=== PATIENT | female | born 1960 | race Two or more races ===

== ENCOUNTER 2016-12-31 10:10 | Emergency (ER) | payer MEDICAID ==
[~2016-12-31] VITALS: Ht 160 cm; Wt 61.2 kg
[~2016-12-31 10:10] MED LIST: ALBUPOW26 XX; FLUT250M2 IN
[2016-12-31 10:50] VITALS: BP 144/93
[2016-12-31] MEDS ORDERED: KETOROLAC TROMETH 60MG/2ML VIAL IM ONE (11:00)
== END 2016-12-31 11:35 | disposition home or self-care (01) ==
LOC: ER 10:10
DX: G43.009 Migraine without aura, not intractable, without status migrainosus (principal)
CPT/HCPCS: 70450; 96372; 99284; J1885

== ENCOUNTER 2017-01-13 04:34 | Inpatient (IN) | payer MEDICAID ==
[~2017-01-13] VITALS: Ht 154.9 cm; Wt 67.2 kg
[2017-01-13] MEDS ORDERED: IPRATROPIUM BROM 0.5 MG/2.5ML INH SOL NEB ONE ×2 (04:45→10:00)
[2017-01-13] MEDS ORDERED: ALBUTEROL SULF 2.5 MG/0.5ML(0.5%) NEB SOLN NEB ONE ×2 (04:45→10:00)
[2017-01-13] MEDS ORDERED: methylPREDNISolone SOD SUCC 125 MG/2 ML VL IV ONE ×2 (04:45→10:30)
[2017-01-13] MEDS ORDERED: EPINEPHrine HCL 1 MG/1 ML AMP ONE (04:56)
[2017-01-13 04:57] LABS: Basophils # (auto) 0.1 uL; Basophils % (auto) 1.1 % (0.0-2.0); Eosinophils # (auto) 1.1 uL; Eosinophils % (auto) 10.1 % (0.0-7.0); Hematocrit 41.5 % (36.0-46.0); Hemoglobin 13.8 g/dL (12.2-16.2); Lymphocytes # (auto) 3.8 uL; Mean Corpuscular Hemoglobin 30.1 pg (28.0-32.0); Mean Corpuscular Hgb Conc. 33.2 g/dL (32.0-36.0); Mean Corpuscular Volume 90.7 fL (80.0-100.0); Mean Platelet Volume 7.1 fL (6.9-10.8); Monocytes # (auto) 0.7 uL; Monocytes % (auto) 6.5 % (0.0-12.0); Neutrophils # (auto) 5.4 uL; Neutrophils % (auto) 48.3 % (37.0-80.0); Nucleated Red Blood Cells % 0.1 %; Platelet Count (auto) 306 10^3/uL (140-450); Red Cell Distribution Width 13.5 % (11.8-14.3); White Blood Cell 11.2 10^3/uL (4.4-10.8)
[2017-01-13] MEDS ORDERED: diphenhdrAMINE HCL 50 MG/1 ML VL IV ONE (05:00)
[2017-01-13] MEDS ORDERED: EPINEPHrine HCL 1 MG/1 ML AMP SC ONE (05:00)
[2017-01-13] MEDS ORDERED: ALBUTEROL SULF 2.5 MG/0.5ML(0.5%) NEB SOLN ONE ×2 (05:05→11:23)
[2017-01-13 05:19] LABS: Calcium 8.8 mg/dL (8.5-10.1); Potassium 4.1 mmol/L (3.5-5.1)
[2017-01-13 05:21] LABS: BUN/Creatinine Ratio 18.5
[2017-01-13 05:21] LABS: Base Excess 0.3 mmol/L (-2.0-2.0); Blood COHb 0.3 % (0.5-1.5); Blood MetHb 0.5 % (0.0-1.5); HCO3 22.4 mmol/L (22-26.0); MODE NASAL CANNULA; O2Hb 97.2 % (94.0-97.0); PCO2 29.6 mmHg (35.0-45.0); PCO2(T) 29.6 mmHg (35.0-45.0); PO2 122.9 mmHg (80.0-100.0); PO2(T) 122.9 mmHg (80.0-100.0); Sample Type Arterial; pH 7.497 (7.350-7.450)
[2017-01-13 05:23] LABS: Bilirubin, Total 0.2 mg/dL (0.2-1.0); Total Protein 7.7 g/dL (6.4-8.2)
[2017-01-13 05:48] LABS: B-Type Natriuretic Peptide < 5.0 pg/mL (0-100); Temperature: 21.9 C (20.0-25.0)
[2017-01-13] MEDS: MAGNESIUM SULFATE 1GM/100ML 100 ML IV SCH ×3 (06:02→07:27)
[2017-01-13] MEDS ORDERED: methylPREDNISolone SOD SUCC 125 MG/2 ML VL ONE (10:26)
[2017-01-13] MEDS ORDERED: SODIUM CHLORIDE 0.9% 1,000 ML IVB ONE (10:42)
[2017-01-13] MEDS ORDERED: cefTRIAXone 1GM/50ML D5W 50 ML IV ONE (10:45)
[2017-01-13] MEDS ORDERED: LORazepam 2MG/ML-1ML VIAL ONE (10:48)
[2017-01-13] MEDS ORDERED: LORazepam 2MG/ML-1ML VIAL IV ONE (11:00)
[2017-01-13] MEDS ORDERED: ACETAMINOPHEN 500 MG TAB PO PRN (12:15)
[2017-01-13] MEDS ORDERED: NITROGLYCERIN 0.4 MG SL TAB SL PRN (12:15)
[2017-01-13] MEDS ORDERED: TEMAZEPAM 15 MG CAP PO PRN (12:15)
[2017-01-13] MEDS ORDERED: PROMETHAZINE HCL 25 MG/ML 1ML IV PRN (12:15)
[2017-01-13] MEDS ORDERED: LORazepam 0.5 MG TAB PO PRN (12:15)
[2017-01-13] MEDS ORDERED: MORPHINE SULF INJ 2 MG/ML SYRINGE 1ML IV PRN ×2 (12:15)
[2017-01-13] MEDS: DOXYCYCLINE HYC 100MG/250ML 250 ML IV SCH (13:00)
[2017-01-13] MEDS: SODIUM CHLORIDE 0.9% 1,000 ML IV SCH ×2 (13:10→18:18)
[2017-01-13] MEDS: ALBUTEROL SULF 2.5 MG/0.5ML(0.5%) NEB SOLN NEB PRN (16:01)
[2017-01-13] MEDS: IPRATROPIUM BROM 0.5 MG/2.5ML INH SOL NEB SCH ×2 (18:09→23:50)
[2017-01-13] MEDS: BUDESONIDE (INHALATION) 0.5 MG/2 ML NEB NEB SCH (18:09)
[2017-01-13] MEDS: methylPREDNISolone SOD SUCC 40 MG/ML VL IV SCH (18:09)
[2017-01-13] MEDS: ALBUTEROL SULF 2.5 MG/0.5ML(0.5%) NEB SOLN NEB SCH ×2 (18:09→23:50)
[2017-01-13 18:12] VITALS: BP 122/78
[2017-01-14] MEDS: methylPREDNISolone SOD SUCC 40 MG/ML VL IV SCH ×4 (00:02→18:50)
[2017-01-14] MEDS: DOXYCYCLINE HYC 100MG/250ML 250 ML IV SCH (00:02)
[2017-01-14] MEDS: ALBUTEROL SULF 2.5 MG/0.5ML(0.5%) NEB SOLN NEB PRN (03:17)
[2017-01-14] MEDS: BUDESONIDE (INHALATION) 0.5 MG/2 ML NEB NEB SCH ×2 (05:38→18:40)
[2017-01-14] MEDS: ALBUTEROL SULF 2.5 MG/0.5ML(0.5%) NEB SOLN NEB SCH ×5 (05:38→22:28)
[2017-01-14] MEDS: IPRATROPIUM BROM 0.5 MG/2.5ML INH SOL NEB SCH ×5 (05:38→22:28)
[2017-01-14] MEDS ORDERED: PATIENTS OWN MEDICATION (Fluticasone-Salmeterol (Advair Diskus 250/50) 2 PUFF) IN SCH (10:00)
[2017-01-14] MEDS: HYDROcodone-ACET 5/325MG TAB PO PRN (10:08)
[2017-01-14] MEDS ORDERED: AZITHROMYCIN 250 MG TAB PO ONE (11:45)
[2017-01-14] MEDS ORDERED: cefTRIAXone 1GM/50ML D5W 50 ML IV ONE (11:45)
[2017-01-14] MEDS: SODIUM CHLORIDE 0.9% 1,000 ML IV SCH (15:15)
[2017-01-14] MEDS: DOCUSATE SOD 100 MG CAP PO SCH (21:37)
[2017-01-14 22:00] VITALS: BP 123/67
[2017-01-14 23:00] VITALS: BP 123/67
[2017-01-15] MEDS: methylPREDNISolone SOD SUCC 40 MG/ML VL IV SCH ×4 (00:20→21:59)
[2017-01-15 01:00] VITALS: BP 123/67
[2017-01-15] MEDS: ALBUTEROL SULF 2.5 MG/0.5ML(0.5%) NEB SOLN NEB SCH ×5 (02:22→22:17)
[2017-01-15] MEDS: IPRATROPIUM BROM 0.5 MG/2.5ML INH SOL NEB SCH ×5 (02:22→22:17)
[2017-01-15] MEDS: SODIUM CHLORIDE 0.9% 1,000 ML IV SCH ×2 (04:06→17:00)
[2017-01-15 05:00] VITALS: BP 124/75
[2017-01-15 06:25] LABS: Basophils # (auto) 0.1 uL; Basophils % (auto) 0.7 % (0.0-2.0); Eosinophils # (auto) 0 uL; Hematocrit 37.3 % (36.0-46.0); Hemoglobin 12.2 g/dL (12.2-16.2); Lymphocytes % (auto) 5.4 % (10.0-50.0); Mean Corpuscular Hemoglobin 29.8 pg (28.0-32.0); Mean Corpuscular Hgb Conc. 32.7 g/dL (32.0-36.0); Mean Corpuscular Volume 91.3 fL (80.0-100.0); Mean Platelet Volume 7.9 fL (6.9-10.8); Monocytes # (auto) 0.4 uL; Monocytes % (auto) 1.9 % (0.0-12.0); Neutrophils # (auto) 17.9 uL; Platelet Count (auto) 279 10^3/uL (140-450); White Blood Cell 19.4 10^3/uL (4.4-10.8)
[2017-01-15 06:50] LABS: Albumin 3.3 g/dL (3.4-5.0); BUN/Creatinine Ratio 24.1; Calcium 8.6 mg/dL (8.5-10.1)
[2017-01-15 06:53] LABS: Bilirubin, Total 0.1 mg/dL (0.2-1.0); Total Protein 6.4 g/dL (6.4-8.2)
[2017-01-15 07:53] VITALS: BP 143/83
[2017-01-15] MEDS: cefTRIAXone 1GM/50ML D5W 50 ML IV SCH (09:11)
[2017-01-15] MEDS: BUDESONIDE (INHALATION) 0.5 MG/2 ML NEB NEB SCH ×2 (09:23→22:17)
[2017-01-15] MEDS: ALBUTEROL SULF 2.5 MG/0.5ML(0.5%) NEB SOLN NEB PRN (09:23)
[2017-01-15] MEDS: DOCUSATE SOD 100 MG CAP PO SCH ×2 (11:48→21:59)
[2017-01-15] MEDS: AZITHROMYCIN 250 MG TAB PO SCH (11:48)
[2017-01-15 11:52] VITALS: BP 144/76
[2017-01-15 16:32] VITALS: BP 138/73
[2017-01-15 21:33] VITALS: BP 125/77
[2017-01-16] MEDS: IPRATROPIUM BROM 0.5 MG/2.5ML INH SOL NEB SCH ×7 (02:00→22:43)
[2017-01-16] MEDS: ALBUTEROL SULF 2.5 MG/0.5ML(0.5%) NEB SOLN NEB SCH ×7 (02:00→22:43)
[2017-01-16 05:00] VITALS: BP 134/76
[2017-01-16 05:37] LABS: Hemoglobin 11.9 g/dL (12.2-16.2); Mean Corpuscular Hemoglobin 30.1 pg (28.0-32.0); Mean Corpuscular Hgb Conc. 33.1 g/dL (32.0-36.0); Mean Corpuscular Volume 90.9 fL (80.0-100.0); Mean Platelet Volume 7.8 fL (6.9-10.8); Platelet Count (auto) 262 10^3/uL (140-450); Red Cell Distribution Width 13.7 % (11.8-14.3); White Blood Cell 14.4 10^3/uL (4.4-10.8)
[2017-01-16 05:51] LABS: BUN/Creatinine Ratio 23.2; Calcium 8.2 mg/dL (8.5-10.1); Potassium 4.6 mmol/L (3.5-5.1)
[2017-01-16 05:53] LABS: Bilirubin, Total 0.1 mg/dL (0.2-1.0)
[2017-01-16 06:12] LABS: Metamyelocytes % 0; Myelocytes % 0; Promyelocytes % 0; Reactive Lymphocytes 0
[2017-01-16] MEDS: SODIUM CHLORIDE 0.9% 1,000 ML IV SCH ×2 (06:26→20:04)
[2017-01-16] MEDS: methylPREDNISolone SOD SUCC 40 MG/ML VL IV SCH ×3 (06:26→22:37)
[2017-01-16 09:00] VITALS: BP 144/83
[2017-01-16] MEDS: cefTRIAXone 1GM/50ML D5W 50 ML IV SCH (09:00)
[2017-01-16 09:40] LABS: Platelet Estimate Adequate
[2017-01-16] MEDS: DOCUSATE SOD 100 MG CAP PO SCH ×2 (10:07→22:38)
[2017-01-16] MEDS: AZITHROMYCIN 250 MG TAB PO SCH (10:07)
[2017-01-16] MEDS: BUDESONIDE (INHALATION) 0.5 MG/2 ML NEB NEB SCH ×2 (10:17→22:43)
[2017-01-16] MEDS ORDERED: MILK OF MAGNESIA 30ML SUSP PO ONE (13:15)
[2017-01-16 15:11] VITALS: BP 141/76
[2017-01-16 21:14] VITALS: BP 144/90
[2017-01-17] MEDS: ALBUTEROL SULF 2.5 MG/0.5ML(0.5%) NEB SOLN NEB SCH ×6 (02:46→22:51)
[2017-01-17] MEDS: IPRATROPIUM BROM 0.5 MG/2.5ML INH SOL NEB SCH ×6 (02:46→22:51)
[2017-01-17 04:36] VITALS: BP 135/76
[2017-01-17 04:45] VITALS: BP 144/90
[2017-01-17 05:39] LABS: Hematocrit 36.5 % (36.0-46.0); Hemoglobin 11.8 g/dL (12.2-16.2); Mean Corpuscular Hemoglobin 29.3 pg (28.0-32.0); Mean Corpuscular Hgb Conc. 32.4 g/dL (32.0-36.0); Mean Corpuscular Volume 90.6 fL (80.0-100.0); Mean Platelet Volume 7.9 fL (6.9-10.8); Platelet Count (auto) 262 10^3/uL (140-450); Red Cell Distribution Width 13.4 % (11.8-14.3); White Blood Cell 12.4 10^3/uL (4.4-10.8)
[2017-01-17 05:47] LABS: Metamyelocytes % 0; Myelocytes % 0; Promyelocytes % 0; Reactive Lymphocytes 0
[2017-01-17] MEDS: BUDESONIDE (INHALATION) 0.5 MG/2 ML NEB NEB SCH ×2 (05:51→19:27)
[2017-01-17 06:08] LABS: BUN/Creatinine Ratio 25.4; Calcium 8.3 mg/dL (8.5-10.1); Potassium 4.1 mmol/L (3.5-5.1)
[2017-01-17] MEDS: methylPREDNISolone SOD SUCC 40 MG/ML VL IV SCH ×3 (06:38→21:45)
[2017-01-17 09:00] VITALS: BP 138/79
[2017-01-17] MEDS: SODIUM CHLORIDE 0.9% 1,000 ML IV SCH ×2 (09:26→21:46)
[2017-01-17 09:36] LABS: Platelet Estimate Adequate
[2017-01-17] MEDS: DOCUSATE SOD 100 MG CAP PO SCH ×2 (10:00→21:45)
[2017-01-17] MEDS: cefTRIAXone 1GM/50ML D5W 50 ML IV SCH (10:01)
[2017-01-17] MEDS: AZITHROMYCIN 250 MG TAB PO SCH (10:02)
[2017-01-17 12:00] VITALS: BP 128/72
[2017-01-17] MEDS ORDERED: ALBUTEROL SULF 2.5 MG/0.5ML(0.5%) NEB SOLN NEB PRN (13:15)
[2017-01-17] MEDS: HYDROcodone-ACET 5/325MG TAB PO PRN (14:12)
[2017-01-17] MEDS ORDERED: GASTROGRAFIN 120 ML SOL ONE (16:32)
[2017-01-17 17:17] VITALS: BP 122/74
[2017-01-17 22:00] VITALS: BP 120/85
[2017-01-17] MEDS ORDERED: MONTELUKAST SODIUM 10 MG TAB PO SCH (22:00)
[2017-01-18] MEDS: ALBUTEROL SULF 2.5 MG/0.5ML(0.5%) NEB SOLN NEB SCH ×3 (02:00→10:20)
[2017-01-18] MEDS: IPRATROPIUM BROM 0.5 MG/2.5ML INH SOL NEB SCH ×3 (02:01→10:20)
[2017-01-18 05:00] VITALS: BP 127/90
[2017-01-18] MEDS: methylPREDNISolone SOD SUCC 40 MG/ML VL IV SCH (06:27)
[2017-01-18] MEDS: BUDESONIDE (INHALATION) 0.5 MG/2 ML NEB NEB SCH (06:29)
[2017-01-18] MEDS: DOCUSATE SOD 100 MG CAP PO SCH (09:00)
[2017-01-18] MEDS: AZITHROMYCIN 250 MG TAB PO SCH (09:00)
[2017-01-18] MEDS: cefTRIAXone 1GM/50ML D5W 50 ML IV SCH (09:00)
== END 2017-01-18 13:20 | disposition home or self-care (01) | DRG 141 ==
LOC: ER 04:36 → TELE 04:37 → TELE-WESTW 01-14 23:21
PROVIDERS: ADMIT Internal Medicine; ATTEND Internal Medicine
DX: J45.901 Unspecified asthma with (acute) exacerbation (principal); E44.0 Moderate protein-calorie malnutrition; R00.0 Tachycardia, unspecified; Z82.5 Family history of asthma and other chronic lower respiratory diseases; Z88.0 Allergy status to penicillin; Z88.2 Allergy status to sulfonamides; Z88.8 Allergy status to other drugs, medicaments and biological substances; Z90.710 Acquired absence of both cervix and uterus; Z68.28 Body mass index [BMI] 28.0-28.9, adult
CPT/HCPCS: 36415; 36600; 71010; 74250; 80048; 80053; 82805; 83735; 83880; 85007; 85025; 85027; 93005; 94640; 94644; 94645; 96365; 96372; 96375; J0171; J0696; J3490

== ENCOUNTER 2017-06-05 11:15 | Observation (INO) | payer MEDICAID ==
[~2017-06-05] VITALS: Ht 154.9 cm; Wt 63.5 kg
[2017-06-05 12:04] LABS: Basophils # (auto) 0.1 uL; Basophils % (auto) 0.8 % (0.0-2.0); Eosinophils # (auto) 0.1 uL; Eosinophils % (auto) 0.9 % (0.0-7.0); Hematocrit 43.2 % (36.0-46.0); Lymphocytes # (auto) 2.1 uL; Lymphocytes % (auto) 22.4 % (10.0-50.0); Mean Corpuscular Hgb Conc. 32.5 g/dL (32.0-36.0); Mean Corpuscular Volume 89.4 fL (80.0-100.0); Monocytes # (auto) 0.4 uL; Monocytes % (auto) 4.6 % (0.0-12.0); Neutrophils # (auto) 6.7 uL; Neutrophils % (auto) 71.3 % (37.0-80.0); Platelet Count (auto) 347 10^3/uL (140-450); Red Blood Cells 4.84 10^6/uL (4.0-5.20); Red Cell Distribution Width 13.5 % (11.8-14.3); White Blood Cell 9.5 10^3/uL (4.4-10.8)
[2017-06-05 12:26] LABS: Alanine Aminotransferase 27 U/L (13-56); Alkaline Phosphatase 86 U/L (45-117); Anion Gap 7 (5-15); Aspartate Aminotransferase 12 U/L (15-37); BUN/Creatinine Ratio 26.1; Blood Urea Nitrogen 18 mg/dL (7-18); Carbon Dioxide 27 mmol/L (21-32); Chloride 108 mmol/L (98-107); GFR African American 113 mL/min; GFR Non-African American 94 mL/min; Glucose 101 mg/dL (74-106); Potassium 3.9 mmol/L (3.5-5.1); Sodium 142 mmol/L (136-145)
[2017-06-05 12:27] LABS: Albumin 3.9 g/dL (3.4-5.0); Amylase 72 U/L (25-115); Bilirubin, Total 0.3 mg/dL (0.2-1.0); Calcium 8.7 mg/dL (8.5-10.1); Lipase 97 U/L (73-393); Total Protein 7.9 g/dL (6.4-8.2)
[2017-06-05 13:02] LABS: Urine Bacteria NONE SEEN /hpf (None Seen); Urine Blood Negative /uL (Negative); Urine Specific Gravity 1.024 (1.001-1.035); Urine WBC 6 /hpf (0 - 5)
[2017-06-05] MEDS ORDERED: SODIUM CHLORIDE 0.9% 1,000 ML IVB ONE (13:32)
[2017-06-05 14:01] LABS: INR 0.87 (0.9-1.15); Partial Thromboplastin Time 27.1 sec (22.64-33.71); Prothrombin Time 9.5 sec (9.37-12.3)
[2017-06-05 14:20] VITALS: BP 136/76
[2017-06-05] MEDS ORDERED: KETOROLAC TROMETH 30 MG/ML 1ML VIAL IV ONE (15:00)
== END 2017-06-05 17:42 | disposition home or self-care (01) | DRG 203 ==
LOC: ER 11:15 → OVERFLOW 13:33 → ER 17:42
PROVIDERS: ADMIT Family Medicine; ATTEND Family Medicine
DX: R07.89 Other chest pain (principal); J45.909 Unspecified asthma, uncomplicated; R10.13 Epigastric pain; K29.70 Gastritis, unspecified, without bleeding; Z88.0 Allergy status to penicillin; Z90.710 Acquired absence of both cervix and uterus; Z82.49 Family history of ischemic heart disease and other diseases of the circulatory system; Z79.899 Other long term (current) drug therapy
CPT/HCPCS: 36415; 71046; 74176; 80053; 81001; 81025; 82150; 83690; 84484; 85025; 85379; 85610; 85730; 93005; 96361; 96374; 99285; G0378; J1885; J7030

== ENCOUNTER 2017-07-23 11:08 | Emergency (ER) | payer MEDICAID ==
[~2017-07-23] VITALS: Ht 154.9 cm; Wt 67.1 kg
[2017-07-23 11:24] VITALS: BP 142/94
[2017-07-23] MEDS ORDERED: IPRATROPIUM BROM 0.5 MG/2.5ML INH SOL NEB ONE ×2 (11:45)
[2017-07-23] MEDS ORDERED: methylPREDNISolone SOD SUCC 125 MG/2 ML VL IM ONE (11:45)
[2017-07-23] MEDS ORDERED: ALBUTEROL SULF 2.5 MG/0.5ML(0.5%) NEB SOLN NEB ONE (11:45)
== END 2017-07-23 12:12 | disposition home or self-care (01) ==
LOC: ER 11:08
DX: J45.901 Unspecified asthma with (acute) exacerbation (principal); Z90.710 Acquired absence of both cervix and uterus
CPT/HCPCS: 93005; 94640; 96372; 99283; J2930

== ENCOUNTER 2017-09-01 16:51 | Emergency (ER) | payer MEDICAID ==
[~2017-09-01] VITALS: Ht 154.9 cm; Wt 64.4 kg
[2017-09-01 18:40] LABS: Basophils # (auto) 0.1 uL; Basophils % (auto) 0.8 % (0.0-2.0); Eosinophils # (auto) 0.7 uL; Eosinophils % (auto) 7.3 % (0.0-7.0); Hematocrit 40.8 % (36.0-46.0); Hemoglobin 13.3 g/dL (12.2-16.2); Lymphocytes # (auto) 1.9 uL; Lymphocytes % (auto) 21.1 % (10.0-50.0); Mean Corpuscular Hemoglobin 29.4 pg (28.0-32.0); Mean Corpuscular Hgb Conc. 32.6 g/dL (32.0-36.0); Mean Corpuscular Volume 90.2 fL (80.0-100.0); Monocytes # (auto) 0.6 uL; Monocytes % (auto) 6.2 % (0.0-12.0); Neutrophils # (auto) 5.9 uL; Neutrophils % (auto) 64.6 % (37.0-80.0); Nucleated Red Blood Cells % 0.1 %; Platelet Count (auto) 309 10^3/uL (140-450); Red Blood Cells 4.53 10^6/uL (4.0-5.20); Red Cell Distribution Width 14.2 % (11.8-14.3); White Blood Cell 9.2 10^3/uL (4.4-10.8)
[2017-09-01 18:59] LABS: Albumin 4.1 g/dL (3.4-5.0); BUN/Creatinine Ratio 16.3; Bilirubin, Total 0.2 mg/dL (0.2-1.0); Potassium 3.9 mmol/L (3.5-5.1); Total Protein 7.7 g/dL (6.4-8.2)
[2017-09-01 21:16] VITALS: BP 135/80
== END 2017-09-01 21:39 | disposition home or self-care (01) ==
LOC: ER 16:57
DX: S83.92XA Sprain of unspecified site of left knee, initial encounter (principal); J45.909 Unspecified asthma, uncomplicated; Z88.0 Allergy status to penicillin; Z88.2 Allergy status to sulfonamides; Z90.710 Acquired absence of both cervix and uterus; X50.0XXA Overexertion from strenuous movement or load, initial encounter; Y93.89 Activity, other specified; Y99.8 Other external cause status; Y92.89 Other specified places as the place of occurrence of the external cause
CPT/HCPCS: 36415; 80053; 85025; 93971

== ENCOUNTER 2018-02-26 12:24 | Emergency (ER) | payer MEDICAID ==
[~2018-02-26] VITALS: Ht 154.9 cm; Wt 63.5 kg
[2018-02-26] MEDS ORDERED: IPRATROPIUM BROM 0.5 MG/2.5ML INH SOL NEB ONE ×2 (12:30→14:45)
[2018-02-26] MEDS ORDERED: ALBUTEROL SULF 2.5 MG/0.5ML(0.5%) NEB SOLN NEB ONE ×2 (12:30→14:45)
[2018-02-26] MEDS ORDERED: methylPREDNISolone SOD SUCC 125 MG/2 ML VL IV ONE (12:30)
[2018-02-26 13:08] LABS: Basophils # (auto) 0.1 uL; Basophils % (auto) 0.7 % (0.0-2.0); Eosinophils # (auto) 1.2 uL; Eosinophils % (auto) 11.5 % (0.0-7.0); Hematocrit 42.4 % (36.0-46.0); Hemoglobin 13.8 g/dL (12.2-16.2); Lymphocytes # (auto) 2.6 uL; Lymphocytes % (auto) 24.5 % (10.0-50.0); Mean Corpuscular Hemoglobin 29.1 pg (28.0-32.0); Mean Corpuscular Hgb Conc. 32.5 g/dL (32.0-36.0); Mean Corpuscular Volume 89.4 fL (80.0-100.0); Monocytes # (auto) 0.6 uL; Monocytes % (auto) 5.1 % (0.0-12.0); Neutrophils # (auto) 6.2 uL; Neutrophils % (auto) 58.2 % (37.0-80.0); Nucleated Red Blood Cells % 0.1 %; Platelet Count (auto) 395 10^3/uL (140-450); Red Blood Cells 4.74 10^6/uL (4.0-5.20); Red Cell Distribution Width 13.5 % (11.8-14.3); White Blood Cell 10.7 10^3/uL (4.4-10.8)
[2018-02-26 13:19] LABS: Alanine Aminotransferase 30 U/L (13-56); Albumin 3.9 g/dL (3.4-5.0); Anion Gap 10 (5-15); Aspartate Aminotransferase 16 U/L (15-37); BUN/Creatinine Ratio 16.2; Blood Urea Nitrogen 12 mg/dL (7-18); Calcium 8.8 mg/dL (8.5-10.1); Carbon Dioxide 20 mmol/L (21-32); Chloride 111 mmol/L (98-107); GFR African American 104 mL/min; GFR Non-African American 86 mL/min; Glucose 91 mg/dL (74-106); Magnesium 2.4 mg/dL (1.6-2.6); Potassium 3.8 mmol/L (3.5-5.1); Sodium 141 mmol/L (136-145)
[2018-02-26 13:24] LABS: Alkaline Phosphatase 85 U/L (45-117); Bilirubin, Total 0.2 mg/dL (0.2-1.0); Total Protein 7.7 g/dL (6.4-8.2)
[2018-02-26 16:01] VITALS: BP 148/91
== END 2018-02-26 16:25 | disposition home or self-care (01) ==
LOC: ER 12:24
DX: J45.901 Unspecified asthma with (acute) exacerbation (principal); K21.9 Gastro-esophageal reflux disease without esophagitis
CPT/HCPCS: 36415; 71045; 80053; 83735; 84484; 85025; 93005; 94640; 94761; 96374; 99285; J2930; J7611; J7644